=== PATIENT | female | born 1980 | race Caucasian/White ===

== ENCOUNTER 2018-03-24 21:10 | Emergency (ER) | payer OTHER ==
[2018-03-24] MEDS: HYDROCODONE/APAP (10/325) TAB PO ×2 (21:36→21:37)
[2018-03-24] MEDS: ONDANSETRON (ODT) 4 MG TAB ODT ×2 (21:36→21:37)
[2018-03-24] MEDS: ACETAMINOPHEN 325 MG TAB PO (22:26)
== END 2018-03-24 23:29 | disposition home or self-care (01) ==
LOC: E/R 21:10
DX: S00.83XA Contusion of other part of head, initial encounter (principal); V49.40XA Driver injured in collision with unspecified motor vehicles in traffic accident, initial encounter
CPT/HCPCS: 70450; 71250; 72125; 74176; 81025; 99284-25